=== PATIENT | female | born 1935 | race Caucasian/White ===

== ENCOUNTER 2019-12-09 13:19 | Emergency (ER) | payer OTHER, BC ==
[2019-12-09 13:36] VITALS: BMI 28.3
[2019-12-09] MEDS ORDERED: ALBUTEROL SO4 2.5/IPRATROPIUM 0.5 INH SOL 3 ML VIAL.NEB. NEB ONE (14:00)
--- NOTE | 2019-12-09 14:00 | PDOC ---
History of Present Illness - General Chief Complaint: Respiratory Stated Complaint: ASTHMA - History of Present Illness Initial Comments: Belinda Jaiver is an 84yo woman with a PMH of HTN and asthma, recently diagnosed 2 days ago with strep (on Augmentin BID) who presents with wheezing, SOB and frequent cough since yesterday. She states that she tried her home inhaler but did not have much improvement. Per her grandson at bedside, the doctor she saw 2 days ago for sore throat and ear pain noted some wheezing and gave her a nebulizer treatment, after which she felt better. Ms Javier otherwise state that she feels well. Her throat and ear pain have resolved after starting her antibiotics, and she denies any fevers, chills, malaise, poor PO intake, chest pain, nausea/vomiting or other symptoms. She says her last asthma exacerbation was 2-3 days ago; otherwise she is generally well controlled. Past History - Past Medical History Allergies/Adverse Reactions: Allergies Allergy/AdvReac Type Severity Reaction Status Date / Time No Known Allergies Allergy Verified 12/09/19 13:33 Home Medications: Ambulatory Orders Albuterol Sulfate Inhaler - [Ventolin Hfa Inhaler -] 1 - 2 inh PO Q4H PRN Ascorbic Acid [Vitamin C -] 500 mg PO BID 12/09/19 Aspirin 81 mg PO DAILY 12/09/19 Cholecalciferol (Vitamin D3) [Vitamin D3 -] 1,000 unit PO DAILY 12/09/19 Cyanocobalamin (Vitamin B-12) [Vitamin B-12] 1,000 mcg PO DAILY 12/09/19 Genistein/Cit Zinc B-G/Vit D3 [Fosteum Capsule] 1 each PO DAILY 12/09/19 Inhaler, Assist Devices [Space Chamber Plus] 1 each UTDICT #1 spacer Losartan Potassium [Cozaar -] 50 mg PO DAILY 12/09/19 Montelukast Na [Singulair -] 10 mg PO HS 12/09/19 Multivitamin/Iron/Folic Acid [Centrum Adults Tablet] 1 each PO DAILY 12/09/19 [place]-3 Fatty Acids/Fish Oil [Fish Oil 1,000 mg Capsule] 1 each PO DAILY Omeprazole 20 mg PO DAILY 12/09/19 Prednisone [Prednisone 50 MG TABLETS] 50 mg PO DAILY #4 tablet 12/09/19 - Psycho Social/Smoking Cessation Hx Smoking History: Never smoked Review of Systems - Review of Systems Comments:: General: No fevers, no chills, no weight or appetite change, no malaise HEENT: No changes in vision, no changes in hearing, no congestion, + sore throat (dx w/ strep 2 days ago) CV: No chest pain, no palpitations, no LE edema Pulm: +Cough, +wheezing GI: No nausea or vomiting, no change in bowel habits, no melena : No frequency, no urgency, no dysuria Musc: No back pain, no joint swelling, no recent injury Skin: No rash, no lesions, no erythema Endo: No excessive thirst, no heat/cold intolerance Heme: No unusual bruising or bleeding, no swollen glands Neuro: No syncope, no numbness/tingling, no focal weakness Vasc: No claudication Psych: No recent change in mood, no SI or HI *Physical Exam - Vital Signs Last Vital Signs Temp Pulse Resp BP Pulse Ox 98.2 F 102 H 26 H 126/65 97 12/09/19 13:35 12/09/19 13:35 12/09/19 13:35 12/09/19 13:35 12/09/19 13:35 - Physical Exam General: Comfortable, no acute distress HEENT: PERRL, EOMI, MMM, voice normal, TM clear b/l. Oropharynx exam deferred due to nebs Cards: RRR, no murmur appreciated Pulm: Comfortable on room air. Diffuse expiratory wheezing. Frequent dry cough. Abd: Soft, nontender, nondistended Ext: Atraumatic. No LE edema. ROM intact. WWP Skin: Normal color, no rashes or lesions Neuro: A&Ox3, CN grossly intact, normal speech, motor/sensory grossly intact and symmetric Psych: Mood appropriate to situation ED Treatment Course - LABORATORY CBC & Chemistry Diagram: 12/09/19 16:18 12/09/19 16:18 Medical Decision Making - Medical Decision Making 12/09/19 13:59 Belinda Javier is an 84yo woman with a PMH of HTN and asthma, recently diagnosed 2 days ago with strep (on Augmentin BID) who presents with wheezing, SOB and frequent cough since yesterday. She had no improvement from her home albuterol inhaler. - Diffuse expiratory wheezing c/w asthma exacerbation. Breathing comfortably, sats 97% on RA. - Duonebs - Prednisone - CXR given recent strep infection, eval for pneumonia - Influenza swab given age and asthma 12/09/19 15:25 - Continued wheezing following duonebs - Albuterol nebs ordered - Flu negative - Will reassess following albuterol. May need IV mag 12/09/19 16:00 - Wheezing not notably improved - IV mag ordered - CBC, CMP, trop, BNP 12/09/19 17:41 - Wheezing nearly gone following mag. Pt still has loud upper airway sounds but lungs improved. OK to be discharged. - Will give prednisone for 4 days at home - Advised regarding use of spacer for albuterol MDI - Elevated temp in ED, likely due to recently diagnosed strep. Tylenol ordered. - Labs without significant abnormalities. Discussed with Dr María Patel PGY2 Discharge - Discharge Information Problems reviewed: Yes Clinical Impression/Diagnosis: Asthma exacerbation Qualifiers: Asthma severity: unspecified severity Asthma persistence: unspecified Qualified Code(s): J45.901 - Unspecified asthma with (acute) exacerbation Condition: Improved Disposition: HOME - Admission No - Additional Discharge Information Prescriptions: Inhaler, Assist Devices [Space Chamber Plus] 1 each UTDICT #1 spacer Prednisone [Prednisone 50 MG TABLETS] 50 mg PO DAILY #4 tablet - Follow up/Referral Referrals: [facility] [place] [Provider Group] - Patient Discharge Instructions Patient Printed Discharge Instructions: DI for Asthma -- Adult Additional Instructions: Discharge Instructions: You were seen in the emergency department for an asthma flare-up. Your symptoms improved with medications. Home Care: - You have been prescribed a steroid, prednisone 50mg, that should be taken daily for 4 days starting tomorrow. - Use your home albuterol inhaler every 4 hours as needed. You should use it with the prescribed spacer. [place] 2 pumps into the spacer, then breath in the medication (mist) from the tube. - You may continue to have fever due to your strep infection. You can take acetaminophen (Tylenol) 650mg every 6 hours as needed. Stop taking the antibiotic that was prescribed; you had an antibiotic injection in the ED. - If you have continued mild symptoms, you should see a primary doctor within the next week. You have been given contact information for the [facility] if you need a doctor in [place]. - Seek immediate care for any worsening symptoms, difficulty breathing, rapid breathing, chest pain, or other medical emergency. - Post Discharge Activity
[2019-12-09] MEDS: ALBUTEROL SO4 2.5/IPRATROPIUM 0.5 INH SOL 3 ML VIAL.NEB. NEB SCH ×4 (14:03→14:45)
--- NOTE | 2019-12-09 14:05 | PDOC ---
Attending Attestation - Resident Resident Name: Preeti Patel - ED Attending Attestation I have performed the following: I have examined & evaluated the patient, The case was reviewed & discussed with the resident, I agree w/resident's findings & plan - HPI HPI: 12/09/19 16:24 84yo woman with a PMH of HTN and asthma, recently diagnosed 2 days ago with strep (on Augmentin BID) who presents with wheezing, SOB and frequent cough since yesterday. She states that she tried her home inhaler but did not have much improvement. Per her grandson at bedside, the doctor she saw 2 days ago for sore throat and ear pain noted some wheezing and gave her a nebulizer treatment, after which she felt better. dx'd Strep pharyngitis 2 days ago 12/09/19 17:00 - Physicial Exam PE: 12/09/19 14:03 Agree with the resident's HPI and PE as documented in the electronic medical record. NAD, well appearing, EOMI, PERRL, nl conjunctiva, anicteric; neck supple. lungs with b/l wheezing, +tachy, no murmur. abdomen soft nontender. No rebound, no guarding. Back nontender. HAMMONDS x4, no focal neuro deficits. No peripheral edema. normal color for ethnicity, WWP. - Medical Decision Making 12/09/19 14:04 Vital Signs Temp Pulse Resp BP Pulse Ox 98.2 F 102 H 26 H 126/65 97 12/09/19 13:35 12/09/19 13:35 12/09/19 13:35 12/09/19 13:35 12/09/19 14:03 VS reviewed mildly tachypneic, afebrile, sats normal on RA wheezing ddx, asthma, viral syndrome, URI, influenza, pneumonia, pleural effusion/ pulmonary edema. given nebs x3, steroidsl offered bicillin x 1 for strep infection tx. instead of 10d amox course. 12/09/19 16:24 on reassessment, still wheezing, breathing more comfortably adding on Mg basic labs/monitor, reassess 12/09/19 17:42 labs unremarkable cxr w/o infection or infiltrate now with Low grade temp and tachy, given tylenol. likely from her current strep pharyngitis which she was given bicillin 2.4 million units. on reassessment, wheezing improved, no respiratory distress. breathing comfortably. sats >97% on RA. tachy down to low 100s, afebrile again and remains nontoxic. flu negative. Pt to be discharged in stable condition. Patient and family made aware of clinical impression, treatment recommendations and disposition plan, return precautions discussed (including but not limited to new or persistent/worsening symptoms, pain, fevers, or signs of infection, chest pain, respiratory distress , inability to tolerate oral intake, dehydration, syncope, or neurologic changes ). Follow up with PMD in [place] as recommended, follow up information provided , take medications as instructed for duration of time. continue with supportive care, avoid triggers and precipitants. All questions answered to patient's satisfaction and expressed understanding and comfort with this. At the time of discharge, the patient is alert, clinically improved, tolerating po and verbalizes understanding of instructions, satisfied with the care received and felt comfortable with the plan. Patient does not suffer from an acute life- threatening medical condition at this time and is safe for outpatient follow- up. 12/09/19 18:13 12/09/19 18:13 Heart Score/ECG Review #1 ECG reviewed & interpreted by me at: 13:30 General ECG Interpretation: Sinus Rhythm, Normal Rate, Normal Intervals, No acute ischemic changes Compared to previous ECG there are: Previous ECG unavail 12/09/19 14:06 EKG normal sinus rhythm at 93 bpm, no interval abnormalities, narrow QRS, ST and T wave segments and morphology normal. Nonspecific T wave abnormalities
[2019-12-09] MEDS ORDERED: predniSONE 20 MG TABLET (UD) PO ONE (14:10)
[2019-12-09] MEDS ORDERED: predniSONE 20 MG TABLET (UD) ONE (14:18)
[2019-12-09] MEDS ORDERED: predniSONE 10 MG TABLET (UD) ONE (14:18)
[2019-12-09] MEDS ORDERED: ALBUTEROL SO4 0.083% IH SOL 2.5 MG/3 ML VIAL.NEB. NEB ONE (15:07)
[2019-12-09] MEDS: ALBUTEROL SO4 0.083% IH SOL 2.5 MG/3 ML VIAL.NEB. NEB SCH ×4 (15:19→17:30)
[2019-12-09] MEDS ORDERED: MAGNESIUM SULF 50% (8.12 MEQ/2 ML-1 GM VIAL) IVPB ONE (16:01)
[2019-12-09] MEDS ORDERED: PENICILLIN G BENZATHINE 2,400,000 UNIT/4 ML PFS IM ONE (16:01)
[2019-12-09] MEDS ORDERED: MAGNESIUM SULF 50% (8.12 MEQ/2 ML-1 GM VIAL) ONE (16:13)
[2019-12-09 16:35] LABS: BASO % 0.4 % (0-2.0); EOS % 0.4 % (0-4.5); HEMATOCRIT 44.8 % (32.4-45.2); HEMOGLOBIN 14.6 GM/dL (10.7-15.3); LYMPH % 9.3 % (8-40); MCH 29.1 pg (25.7-33.7); MCHC 32.6 g/dl (32.0-36.0); MEAN CELL VOLUME 89.2 fl (80-96); MEAN PLT VOLUME 9.3 fl (7.5-11.1); MONO % 6.8 % (3.8-10.2); NEUT % 83.1 % (42.8-82.8); PLATELET COUNT 275 K/MM3 (134-434); RBC 5.03 M/mm3 (3.60-5.2); RDW 15.5 % (11.6-15.6); WHITE BLOOD COUNT 9.3 K/mm3 (4.0-10.0)
[2019-12-09] MEDS ORDERED: PENICILLIN G BENZATHINE 1,200,000 UNIT/2 ML PFS IM ONE (16:36)
[2019-12-09 17:30] VITALS: BP 113/66
[2019-12-09] MEDS ORDERED: ACETAMINOPHEN 325 MG TABLET (FP) PO ONE (17:30)
[2019-12-09] MEDS ORDERED: ACETAMINOPHEN 325 MG TABLET (FP) ONE (17:31)
[2019-12-09 17:36] LABS: ALBUMIN 2.9 g/dl (3.4-5.0); ALK PHOS 53 U/L (45-117); ANION GAP 10 MMOL/L (8-16); BILIRUBIN,TOTAL 0.4 mg/dL (0.2-1); BLOOD UREA NITROGEN 13.1 mg/dL (7-18); CALCIUM 9.6 mg/dL (8.5-10.1); CHLORIDE 106 mmol/L (98-107); CO2 25 mmol/L (21-32); CREATININE 0.7 mg/dL (0.55-1.3); GLUCOSE,RANDOM 152 mg/dL (74-106); N-TERMINAL BNP 248.4 pg/ml (5-450); POTASSIUM 4.4 mmol/L (3.5-5.1); SGOT/AST 46 U/L (15-37); SGPT/ALT 29 U/L (13-61); SODIUM 140 mmol/L (136-145); TOT PROT 7.3 g/dl (6.4-8.2)
[2019-12-09 18:01] VITALS: TEMP 99.4
[2019-12-09 18:04] VITALS: PULSE 102
--- NOTE | 2019-12-10 14:05 | EKG ---
Test Reason : Blood Pressure : / mmHG Vent. Rate : 093 BPM Atrial Rate : 093 BPM P-R Int : 206 ms QRS Dur : 102 ms QT Int : 364 ms P-R-T Axes : 041 267 028 degrees QTc Int : 452 ms SINUS RHYTHM WITH FUSION COMPLEXES Consider inferior and anterolateral DE, age undetermined ABNORMAL ECG NO PREVIOUS ECGS AVAILABLE Confirmed by Ricky Ponce ([id number]) on 12/10/2019 2:04:57 PM Referred By: Confirmed By:Ricky Ponce
== END 2019-12-09 18:03 | disposition home or self-care (01) ==
LOC: JER 13:19 → SUPCPDRO 13:19 → JER 18:03
PROC: 3E02329 Introduction of Other Anti-infective into Muscle, Percutaneous Approach (ICD-10-PCS; principal; 2019-12-09)
PROC: 3E0F7GC Introduction of Other Therapeutic Substance into Respiratory Tract, Via Natural or Artificial Opening (ICD-10-PCS; 2019-12-09)
PROC: 3E0F7GC Introduction of Other Therapeutic Substance into Respiratory Tract, Via Natural or Artificial Opening (ICD-10-PCS; 2019-12-09)
DX: J45.901 Unspecified asthma with (acute) exacerbation (principal); I10 Essential (primary) hypertension; J02.0 Streptococcal pharyngitis; B95.0 Streptococcus, group A, as the cause of diseases classified elsewhere
CPT/HCPCS: 36415; 71046-TC-FY; 80053; 82550; 83880; 84484; 85025; 87804; 93005; 93010; 94640; 96372; 99284-25